=== PATIENT | female | born 1990 | race Caucasian/White ===

== ENCOUNTER 2019-03-01 20:20 | Outpatient (CLI) | payer OTHER | END 2019-03-01 20:21 | disposition critical access hospital (66) | LOC: EMS 20:20 | PROVIDERS: ATTEND Surgery | DX: R40.20 Unspecified coma (principal); R53.83 Other fatigue | CPT/HCPCS: A0425; A0429 ==

== ENCOUNTER 2019-03-01 20:38 | Emergency (ER) | payer OTHER ==
--- NOTE | 2019-03-01 20:48 | ED Physician Documentation ---
PD HPI ALTERED MENTAL STATUS - Stated complaint Stated Complaint: AMS/UNRESPONSIVE - History obtained from History obtained from: Patient, EMS - History of Present Illness Timing - onset: Today Timing - duration: Minutes Timing - details: Abrupt onset (The patient had been drinking some alcohol and also took some marijuana. She had gone out into the garage in order to do it so she was outside of the house from her kids. Her states she would go out into the garage to smoke previously. He went out to check on her and found her unconscious in the car which was running with the windows up and the garage door closed. He opened the doors and called EMS. The patient was alert and talkative by the time of EMS arrival. She denied suicidal intent or ideation. She claims she had gone out to the car to be out of the house and was cold so the car was on. She believes she had open the car her windows in the garage door slightly to provide ventilation. She was brought here by EMS. Her and the patient both state she been having some increased depression since starting Klonopin a month ago but had not expressed any suicidal ideation or intent.) Quality / character: Less responsive Associated symptoms: No: Fever Contributing factors: Intoxicated. No: Anticoagulated, Diabetic, Recent med c jonathan Basline status: Alert and oriented X 3, Ambulatory Treatment HEALTH PHYSICIST: Accucheck Similar symptoms before: Has not had sx before Review of Systems Unable to obtain: Intoxicated, Other (still able to answer questions well) Constitutional: denies: Fever Eyes: denies: Decreased vision Nose: denies: Rhinorrhea / runny nose, Congestion Throat: denies: Sore throat Respiratory: denies: Dyspnea, Cough Neurologic: denies: Headache Psychiatric: reports: Depressed, Anxiety, Insomnia. denies: Suicidal, Delusions PD PAST MEDICAL HISTORY - Past Medical History Cardiovascular: None Respiratory: None Neuro: None Endocrine/Autoimmune: None Psych: Depression, Anxiety, Post traumatic stress disorder Musculoskeletal: None - Present Medications Home Medications: Ambulatory Orders Medication Instructions Recorded Confirmed Alprazolam [Xanax] 0.5 mg PO BID PRN #20 tablet 03/01/19 - Allergies Allergies/Adverse Reactions: Allergies Allergy/AdvReac Type Severity Reaction Status Date / Time fentanyl Allergy Anaphylaxis Verified 03/01/19 22:51 PD ED PE NORMAL - Vitals Vital signs reviewed: Yes - General General: Alert and oriented X 3, No acute distress, Well developed/nourished, Other (smell of alcohol on her breath) - HEENT HEENT: Moist mucous membranes, Pharynx benign - Neck Neck: Supple, no meningeal sign, No adenopathy - Cardiac Cardiac: RRR, No murmur - Respiratory Respiratory: Clear bilaterally - Abdomen Abdomen: Soft, Non tender - Derm Derm: Normal color, Warm and dry - Extremities Extremities: No tenderness to palpate, Normal ROM s pain, No edema, No calf tenderness / cord - Neuro Neuro: Alert and oriented X 3, No motor deficit, Normal speech Eye Opening: Spontaneous Motor: Obeys Commands Verbal: Oriented GCS Score: 15 - Psych Psych: Normal mood, Normal affect Results - Vitals Vitals: Vital Signs - 24 hr 03/01/19 03/01/19 20:57 23:42 Temperature 36.9 C 37.2 C Heart Rate 96 74 Respiratory 16 20 Rate Blood Pressure 123/87 H 120/84 H O2 Saturation 100 94 Oxygen O2 Source Room air - Labs Labs: Laboratory Tests 03/01/19 03/01/19 03/01/19 20:45 20:45 20:53 WBC 6.1 RBC 4.76 Hgb 14.0 Hct 42.0 MCV 88.2 MCH 29.4 MCHC 33.3 RDW 12.5 Plt Count 190 MPV 11.6 H Neut # (Auto) 2.2 Lymph # (Auto) 3.5 [place] # (Auto) 0.3 Eos # (Auto) 0.1 Baso # (Auto) 0.1 Absolute Nucleated RBC 0.00 Nucleated RBC % 0.0 VBG Total Hgb VBG Oxyhemoglobin VBG Carboxyhemoglobin VBG Methemoglobin Sodium Potassium Chloride Carbon Dioxide Anion Gap BUN Creatinine Estimated GFR (MDRD) Glucose Calcium Total Bilirubin AST ALT Alkaline Phosphatase Total Protein Albumin Globulin Albumin/Globulin Ratio Lipase TSH Urine Color YELLOW Urine Clarity CLEAR Urine pH 6.5 Ur Specific [place] <=1.005 Urine Protein NEGATIVE Urine Glucose (UA) NEGATIVE Urine Ketones NEGATIVE Urine Occult Blood NEGATIVE Urine Nitrite NEGATIVE Urine Bilirubin NEGATIVE Urine Urobilinogen 0.2 (NORMAL) Ur Leukocyte Esterase NEGATIVE Ur Microscopic Review NOT INDICATED Urine Culture Comments NOT INDICATED Urine HCG, Qual NEGATIVE Salicylates Urine Opiates Screen NEGATIVE Ur Oxycodone Screen NEGATIVE Urine Methadone Screen NEGATIVE Ur Propoxyphene Screen NEGATIVE Acetaminophen Ur Barbiturates Screen NEGATIVE Ur Tricyclics Screen NEGATIVE Ur Phencyclidine Scrn NEGATIVE Ur Amphetamine Screen NEGATIVE U Methamphetamines Scrn NEGATIVE U Benzodiazepines Scrn NEGATIVE Urine Cocaine Screen NEGATIVE U Cannabinoids Screen NEGATIVE Ethyl Alcohol 03/01/19 03/01/19 03/01/19 20:53 20:53 21:26 WBC RBC Hgb Hct MCV MCH MCHC RDW Plt Count MPV Neut # (Auto) Lymph # (Auto) [place] # (Auto) Eos # (Auto) Baso # (Auto) Absolute Nucleated RBC Nucleated RBC % VBG Total Hgb 14.6 VBG Oxyhemoglobin 56 L VBG Carboxyhemoglobin 2.6 H VBG Methemoglobin 0.0 Sodium 144 Potassium 3.9 Chloride 106 Carbon Dioxide 28 Anion Gap 10.0 BUN 7 Creatinine 0.8 Estimated GFR (MDRD) 87 L Glucose 94 Calcium 8.9 Total Bilirubin 0.5 AST 24 ALT 24 Alkaline Phosphatase 70 Total Protein 7.8 Albumin 4.5 Globulin 3.3 Albumin/Globulin Ratio 1.4 Lipase 36 TSH 2.60 Urine Color Urine Clarity Urine pH Ur Specific [place] Urine Protein Urine Glucose (UA) Urine Ketones Urine Occult Blood Urine Nitrite Urine Bilirubin Urine Urobilinogen Ur Leukocyte Esterase Ur Microscopic Review Urine Culture Comments Urine HCG, Qual Salicylates < 6.0 Urine Opiates Screen Ur Oxycodone Screen Urine Methadone Screen Ur Propoxyphene Screen Acetaminophen < 10 L Ur Barbiturates Screen Ur Tricyclics Screen Ur Phencyclidine Scrn Ur Amphetamine Screen U Methamphetamines Scrn U Benzodiazepines Scrn Urine Cocaine Screen U Cannabinoids Screen Ethyl Alcohol 262.1 PD MEDICAL DECISION MAKING - ED course Complexity details: re-evaluated patient (The patient was very pleasant and interactive on first arrival. However as she was sitting around waiting for alcohol level to decrease and also for her to arrive, she did get a little bit anxious about being here in the ER. I told her would want to have her alcohol level come down little bit more and make sure she remained in good disposition and without any suicidal ideation. She was given some medicine to help relax), considered differential, d/w patient ED course: The patient's arrived along with their children. I talked with him and he stated the patient had been having some increased depression last month or so and has an appoint with her psych [facility] interest on March 12. However there had not been any suicidal ideation nor comments. He denies her making any suicidal comments today and felt that she was just going out to the garage to smoke some marijuana. He had not been as aware she had been drinking as well to who. He had checked on her and it had only been perhaps 20 minutes. He saw her passed out in the car was concerned about the carbon monoxide though he did not feel that she would have done it purposefully. I talked with the patient and her together and they interacted well and the was quite comfortable with her going home and did not have any feelings at all of her being suicidal and the patient denied any suicidal intention. As such I feel comfortable discharging her at this point. Departure - Departure Disposition: Home, Self Care Clinical Impression: Carbon monoxide exposure Altered mental status Qualifiers: Altered mental status type: somnolence Qualified Code(s): R40.0 - Somnolence Alcohol intoxication Qualifiers: Complication of substance-induced condition: uncomplicated Qualified Code(s): F10.920 - Alcohol use, unspecified with intoxication, uncomplicated Condition: Stable Record reviewed to determine appropriate education?: Yes Follow-Up: YISEL Long [Provider Group] Prescriptions: Alprazolam [Xanax] 0.5 mg PO BID PRN #20 tablet PRN Reason: Anxiety Comments: Avoid alcohol and marijuana. Stay well-hydrated. Stop your Klonopin and change to Xanax twice daily as needed for anxiety and sleep that works better. Follow-up with your psychiatrist on the seventh as planned. Initiate counseling as soon as available. Discharge Date/Time: 03/01/19 23:50
[2019-03-01 20:59] LABS: BASOPHILS # (AUTO) 0.1 10^3/uL (0.0-0.1); BASOPHILS % (AUTO) 0.8 %; EOSINOPHILS # (AUTO) 0.1 10^3/uL (0.0-0.7); EOSINOPHILS % (AUTO) 1.6 %; LYMPHOCYTES # (AUTO) 3.5 10^3/uL (1.5-3.5); LYMPHOCYTES % (AUTO) 56.5 %; MEAN CORPUSCULAR HEMOGLOBIN 29.4 pg (27.0-31.0); MEAN CORPUSCULAR HGB CONC 33.3 g/dL (32.0-36.0); MEAN CORPUSCULAR VOLUME 88.2 fL (81.0-99.0); MEAN PLATELET VOLUME 11.6 fL (7.9-10.8); MONOCYTES # (AUTO) 0.3 10^3/uL (0.0-1.0); MONOCYTES % (AUTO) 4.3 %; NEUTROPHILS # (AUTO) 2.2 10^3/uL (1.5-6.6); NEUTROPHILS % (AUTO) 36.6 %; PLT - PLATELET COUNT 190 10^3/uL (130-450); RED BLOOD COUNT 4.76 10^6/uL (4.20-5.40); RED CELL DISTRIBUTION WIDTH 12.5 % (12.0-15.0); WHITE BLOOD COUNT 6.1 x10^3/uL (4.8-10.8)
[2019-03-01 21:11] LABS: MUDS CUTOFF CONCENTRATIONS CUTOFF CONC BELOW:
[2019-03-01 21:20] LABS: ACETAMINOPHEN < 10 ug/mL (10-30); ALBUMIN 4.5 g/dL (3.2-5.5); ALBUMIN/GLOBULIN RATIO 1.4 (1.0-2.2); ALKALINE PHOSPHATASE 70 IU/L (42-121); ALT ALANINE AMINOTRANSFERASE 24 IU/L (10-60); AST ASPARTATE AMINOTRANSFERASE 24 IU/L (10-42); BILIRUBIN,TOTAL 0.5 mg/dL (0.2-1.0); BUN - BLOOD UREA NITROGEN 7 mg/dL (6-20); CALCIUM 8.9 mg/dL (8.5-10.3); CARBON DIOXIDE - CO2 28 mmol/L (21-32); CHLORIDE 106 mmol/L (101-111); CREATININE 0.8 mg/dL (0.4-1.0); GFR - MDRD 87 (>89); GLUCOSE 94 mg/dL (70-100); LIPASE 36 U/L (22-51); SALICYLATE < 6.0 mg/dL; SODIUM 144 mmol/L (135-145); TOTAL PROTEIN 7.8 g/dL (6.7-8.2)
[2019-03-01 21:21] LABS: BILIRUBIN,URINE NEGATIVE (NEGATIVE); GLUCOSE, URINE (UA) NEGATIVE (NEGATIVE); KETONES,URINE (UA) NEGATIVE (NEGATIVE); LEUKOCYTE ESTERASE, URINE NEGATIVE (NEGATIVE); NITRITE,URINE NEGATIVE (NEGATIVE); OCCULT BLOOD,URINE NEGATIVE (NEGATIVE); PH,URINE 6.5 PH (5.0-7.5); PROTEIN,URINE NEGATIVE (NEGATIVE); UROBILINOGEN,URINE 0.2 (NORMAL) E.U./dL (NORMAL)
[2019-03-01 21:23] LABS: CLARITY,URINE CLEAR (CLEAR); HCG UR QUAL NEGATIVE
[2019-03-01 21:31] LABS: AMPHETAMINE SCREEN,URINE NEGATIVE (NEGATIVE); BENZODIAZEPINES SCREEN, URINE NEGATIVE (NEGATIVE); COCAINE SCREEN URINE NEGATIVE (NEGATIVE); METHADONE SCREEN, URINE NEGATIVE (NEGATIVE); METHAMPHETAMINES SCREEN, URINE NEGATIVE (NEGATIVE); OPIATE SCREEN, URINE NEGATIVE (NEGATIVE); OXYCODONE SCREEN, URINE NEGATIVE (NEGATIVE); PROPOXYPHENE SCREEN, URINE NEGATIVE (NEGATIVE); TRICYCLIC ANTIDEPRESSANT,URINE NEGATIVE (NEGATIVE)
[2019-03-01] MEDS ORDERED: OLANZapine ODT 5 MG TABLET TL ONE (22:38)
[2019-03-01 23:43] VITALS: BP 120/84
== END 2019-03-01 23:50 | disposition home or self-care (01) ==
LOC: ED 20:38
DX: T58.01XA Toxic effect of carbon monoxide from motor vehicle exhaust, accidental (unintentional), initial encounter (principal); R40.0 Somnolence; F10.920 Alcohol use, unspecified with intoxication, uncomplicated; F41.9 Anxiety disorder, unspecified
CPT/HCPCS: 36415; 80320; 80329; 81003; 81025; 82375; 83690; 99284; 99285; A9270; 80053; 80306; 80307; 81001; 84443; 85025; 87086